=== PATIENT | male | born 1960 | race Caucasian/White ===

== ENCOUNTER 2020-03-26 07:24 | Emergency (ER) | payer BC, OTHER ==
[2020-03-26] MEDS ORDERED: Nitroglycerin 0.4 MG Tab.SL SL PRN (07:39)
[2020-03-26] MEDS ORDERED: Aspirin 81 MG Tab.Chew PO ONE (07:39)
[2020-03-26] MEDS ORDERED: Sodium Chloride 0.9% 10 ML Syringe FLUSH PRN (07:41)
[2020-03-26] MEDS ORDERED: Metoprolol Tartrate 50 MG Tab PO ONE (07:42)
--- NOTE | 2020-03-26 07:43 | EDM.PDOC ---
ED HPI GENERAL MEDICAL PROBLEM - General Chief Complaint: Chest Pain Stated Complaint: CHEST PAIN Time Seen by Provider: 03/26/20 07:41 Source of Information: Reports: Patient, Old Records, RN History Limitations: Reports: No Limitations - History of Present Illness INITIAL COMMENTS - FREE TEXT/NARRATIVE: 59 yo male 2 ppd smoker presents with intermittent chest pains. Sx's inte rmittent for the past > 1 month. Has no doctor. Has noticed that breathing cold air brings on the chest pain. Sx's are worse today so he came in. No personal hx of CAD. Doesn't think he has ever had an EKG. He took 4 Aleve for the pain today without relief. Duration: Week(s):, Intermittent Location: Reports: Chest Quality: Reports: Pressure Severity: Moderate Improves with: Reports: Other (unsure) Worsens with: Reports: Other (cold air breathing) Context: Reports: Other (See HPI) Associated Symptoms: Reports: No Other Symptoms Treatments QUILLER HAND: Reports: Other (see below) (none) - Related Data Allergies Allergy/AdvReac Type Severity Reaction Status Date / Time No Known Allergies Allergy Verified 03/26/20 07:53 Home Meds: Home Meds NK [No Known Home Meds] 03/26/20 [History] ED ROS GENERAL - Review of Systems Review Of Systems: See Below Constitutional: Reports: No Symptoms HEENT: Reports: No Symptoms Respiratory: Reports: No Symptoms Cardiovascular: Reports: Chest Pain Endocrine: Reports: No Symptoms GI/Abdominal: Reports: No Symptoms : Reports: No Symptoms Musculoskeletal: Reports: No Symptoms Skin: Reports: No Symptoms Neurological: Reports: No Symptoms ED EXAM, GENERAL - Physical Exam Exam: See Below Exam Limited By: No Limitations General Appearance: Alert, WD/WN, No Apparent Distress Eye Exam: Bilateral Eye: Normal Inspection Ears: Normal External Exam, Normal Canal, Hearing Grossly Normal. No: Hearing Loss Ear Exam: Bilateral Ear: Auricle Normal, Canal Normal Nose: Normal Inspection, No Blood Throat/Mouth: Normal Inspection, Normal Lips, Normal Oropharynx, Normal Voice, No Airway Compromise Head: Atraumatic, Normocephalic Neck: Normal Inspection Respiratory/Chest: No Respiratory Distress, Lungs Clear, Normal Breath Sounds, No Accessory Muscle Use Cardiovascular: Regular Rate, Rhythm, No Edema, Tachycardia GI/Abdominal: Normal Bowel Sounds, Soft, Non-Tender, No Distention Back Exam: Normal Inspection Extremities: Normal Inspection, Normal Range of Motion, Non-Tender, No Pedal Edema Neurological: Alert, Oriented, CN II-XII Intact, Normal Cognition, No Motor/Sensory Deficits Psychiatric: Normal Affect, Normal Mood Skin Exam: Warm, Dry, Intact, Normal Color, No Rash #1 Interpretation EKG Date: 03/26/20 Time: 07:35 Rhythm: NSR Rate (Beats/Min): 103 [place]: Normal P-Wave: Present QRS: Normal ST-T: Normal QT: Normal Comparison: NA - No Prior EKG (inverted T waves anterior leads) Course - Vital Signs Last Recorded V/S: Last Vital Signs Temp 36.6 C 03/26/20 07:37 Pulse 105 H 03/26/20 07:54 Resp 20 03/26/20 07:54 BP 136/79 03/26/20 07:54 Pulse Ox 95 03/26/20 07:54 - Orders/Labs/Meds Orders: Active Orders 24 hr Category Date Time Status Cardiac Monitoring [RC] .As Directed Care 03/26/20 07:40 Active EKG Documentation Completion [RC] ASDIRECTED Care 03/26/20 07:40 Active UA W/MICROSCOPIC [URIN] Stat Lab 03/26/20 07:40 Ordered Nitroglycerin [Nitrostat] Med 03/26/20 07:39 Active 0.4 mg SL Q5M PRN Sodium Chloride 0.9% [Saline Flush] Med 03/26/20 07:41 Active 10 ml FLUSH ASDIRECTED PRN Saline Lock Insert [OM.PC] Routine Oth 03/26/20 07:41 Ordered EKG 12 Lead [EK] Routine Ther 03/26/20 07:40 Ordered Medication Orders Nitroglycerin (Nitrostat) 0.4 mg SL Q5M PRN PRN Reason: Chest Pain Last Admin: 03/26/20 07:43 Dose: 0.4 mg Documented by: ANNETTE Sodium Chloride (Saline Flush) 10 ml FLUSH ASDIRECTED PRN PRN Reason: Keep Vein Open Last Admin: 03/26/20 07:44 Dose: 10 ml Documented by: ANNETTE Labs: Laboratory Tests 03/26/20 03/26/20 03/26/20 Range/Units 07:40 07:43 08:30 WBC 9.5 (4.5-11.0) K/uL RBC 5.62 (4.30-5.90) M/uL Hgb 17.6 H (12.0-15.0) g/dL Hct 51.7 (40.0-54.0) % MCV 92 (80-98) fL MCH 31 (27-31) pg MCHC 34 (32-36) % Plt Count 228 (150-400) K/uL D-Dimer, Quantitative 464.21 (0.0-500.0) ng/mL Sodium 139 L (140-148) mmol/L Potassium 4.0 (3.6-5.2) mmol/L Chloride 104 (100-108) mmol/L Carbon Dioxide 23 (21-32) mmol/L Anion Gap 16.0 H (5.0-14.0) mmol/L BUN 16 (7-18) mg/dL Creatinine 0.8 (0.8-1.3) mg/dL Est Cr Clr Drug Dosing 101.39 mL/min Estimated GFR (MDRD) > 60 (>60) Glucose 119 H (74-106) mg/dL Calcium 9.4 (8.5-10.1) mg/dL Troponin I 0.034 (0.000-0.056) ng/mL 03/26/20 Range/Units 09:30 WBC (4.5-11.0) K/uL RBC (4.30-5.90) M/uL Hgb (12.0-15.0) g/dL Hct (40.0-54.0) % MCV (80-98) fL MCH (27-31) pg MCHC (32-36) % Plt Count (150-400) K/uL D-Dimer, Quantitative (0.0-500.0) ng/mL Sodium (140-148) mmol/L Potassium (3.6-5.2) mmol/L Chloride (100-108) mmol/L Carbon Dioxide (21-32) mmol/L Anion Gap (5.0-14.0) mmol/L BUN (7-18) mg/dL Creatinine (0.8-1.3) mg/dL Est Cr Clr Drug Dosing mL/min Estimated GFR (MDRD) (>60) Glucose (74-106) mg/dL Calcium (8.5-10.1) mg/dL Troponin I 0.122 H* (0.000-0.056) ng/mL Meds: Medications Generic Name Dose Route Start Last Admin Trade Name Shoaibq PRN Reason Stop Dose Admin Nitroglycerin 0.4 mg 03/26/20 07:39 03/26/20 07:43 Nitrostat SL 0.4 mg Q5M PRN Administration Chest Pain Sodium Chloride 10 ml 03/26/20 07:41 03/26/20 07:44 Saline Flush FLUSH 10 ml ASDIRECTED PRN Administration Keep Vein Open Discontinued Medications Generic Name Dose Route Start Last Admin Trade Name Shoaibq PRN Reason Stop Dose Admin Aspirin 324 mg 03/26/20 07:39 03/26/20 07:43 Aspirin PO 03/26/20 07:40 324 mg ONETIME ONE Administration Metoprolol Tartrate 50 mg 03/26/20 07:42 03/26/20 07:46 Lopressor PO 03/26/20 07:43 50 mg ONETIME ONE Administration Nitroglycerin 1 gm 03/26/20 07:50 03/26/20 07:59 Nitro-Bid 2% TOP 03/26/20 07:51 1 gm ONETIME ONE Administration Ticagrelor 180 mg 03/26/20 07:48 03/26/20 07:59 Brilinta PO 03/26/20 07:49 180 mg ONETIME ONE Administration Departure - Departure Time of Disposition: 10:25 Disposition: DC/Tfer to Acute Hospital 02 Reason for Transfer *Q: Other Condition: Serious Clinical Impression: Non-STEMI (non-ST elevated myocardial infarction), Tobacco abuse Referrals: PCP,None [Primary Care Provider] - Forms: ED Department Discharge Additional Instructions: Go directly to the [facility] ER. No smoking en route. No driving. Take your records along for [place] to review. Sepsis Event Note (ED) - Evaluation Sepsis Screening Result: No Definite Risk - Focused Exam Vital Signs: Vital Signs Temp Pulse Pulse Resp BP BP Pulse Ox 03/26/20 07:54 105 H 20 136/79 95 03/26/20 07:46 108 H 132/60 03/26/20 07:43 144/94 H 03/26/20 07:37 36.6 C 108 H 20 144/94 H 96 - My Orders Last 24 Hours: My Active Orders 03/26/20 07:39 Nitroglycerin [Nitrostat] 0.4 mg SL Q5M PRN 03/26/20 07:40 Cardiac Monitoring [RC] .As Directed EKG Documentation Completion [RC] ASDIRECTED UA W/MICROSCOPIC [URIN] Stat EKG 12 Lead [EK] Routine 03/26/20 07:41 Sodium Chloride 0.9% [Saline Flush] 10 ml FLUSH ASDIRECTED PRN Saline Lock Insert [OM.PC] Routine - Assessment/Plan Last 24 Hours: My Active Orders 03/26/20 07:39 Nitroglycerin [Nitrostat] 0.4 mg SL Q5M PRN 03/26/20 07:40 Cardiac Monitoring [RC] .As Directed EKG Documentation Completion [RC] ASDIRECTED UA W/MICROSCOPIC [URIN] Stat EKG 12 Lead [EK] Routine 03/26/20 07:41 Sodium Chloride 0.9% [Saline Flush] 10 ml FLUSH ASDIRECTED PRN Saline Lock Insert [OM.PC] Routine
[2020-03-26] MEDS ORDERED: Ticagrelor 90 MG Tab PO ONE (07:48)
[2020-03-26] MEDS ORDERED: Nitroglycerin 2% Oint 1 GM UD Packet TOP ONE (07:50)
== END 2020-03-26 10:35 ==
LOC: JP.ED 07:24
DX: I21.4 Non-ST elevation (NSTEMI) myocardial infarction (principal); F17.210 Nicotine dependence, cigarettes, uncomplicated
CPT/HCPCS: 36415; 80048; 84484; 85027; 85379; 93005; 99285-25; A9270-GY; U0002

== ENCOUNTER 2022-05-27 06:07 | Emergency (ER) | payer BC, OTHER ==
[2022-05-27] MEDS ORDERED: Sodium Chloride 0.9% 10 ML Syringe FLUSH PRN (06:27)
[2022-05-27] MEDS ORDERED: Lactated Ringers 1,000 ML IV SCH (06:30)
[2022-05-27] MEDS ORDERED: Iopamidol 612 MG/ML 100 ML Bottle IV PRN (06:35)
[2022-05-27] MEDS ORDERED: Sodium Chloride 0.9% 50 ML IV SCH (06:45)
[2022-05-27 07:10] LABS: ESTIMATED GFR 85 mL/min (>60); TROPONIN I HIGH SENSITIVITY 5.4 pg/mL (<=60.3)
[2022-05-27 07:19] LABS: CORONAVIRUS COVID-19 NAA NEGATIVE (NEGATIVE)
[2022-05-27] MEDS ORDERED: diphenhydrAMINE 50 MG/ML SDV IVPUSH ONE (07:45)
[2022-05-27] MEDS ORDERED: Lactated Ringers 1,000 ML IV ONE ×2 (07:53→09:00)
[2022-05-27] MEDS ORDERED: cefTRIAXone 2 GM in Sodium Chloride 0.9% 50 ML IV ONE (09:01)
[2022-05-27] MEDS ORDERED: methylPREDNISolone Sodium Succinate 40 MG/1 ML SDV IVPUSH ONE (09:33)
[2022-05-27] MEDS ORDERED: EPINEPHrine 1 MG/ML SDV IM ONE (09:33)
== END 2022-05-27 10:55 | disposition home or self-care (01) ==
LOC: JP.ED 06:07
DX: L50.0 Allergic urticaria (principal); R47.1 Dysarthria and anarthria; F17.210 Nicotine dependence, cigarettes, uncomplicated; Z79.82 Long term (current) use of aspirin; Z79.02 Long term (current) use of antithrombotics/antiplatelets; Z79.899 Other long term (current) drug therapy; Z20.822 Contact with and (suspected) exposure to COVID-19
CPT/HCPCS: 0241U; 36415; 70450; 71260; 74177; 80053; 81001; 83605; 84145; 84443; 84484; 85025; 86140; 87040; 93005; 93010; 96361; 96374; 96375; 99285; 99285-25; J0171; J1200; J2920; J3490; J7120; Q9967